=== PATIENT | female | born 1990 | race Caucasian/White ===

== ENCOUNTER 2019-03-15 14:27 | Emergency (ER) | payer SELFPAY ==
[~2019-03-15] VITALS: Ht 160 cm; Wt 100.0 kg
[~2019-03-15 14:27] MED LIST: AMOX500C2 PO; HYOS0.1217 PO; NAPR-243 PO; NAPR-915 PO; NITR-65 PO; ONDA-42 SL; ORPH100T PO; PARO10TA21 PO; PHEN37.555 PO; TRIA1TAB5 PO
[2019-03-15] MEDS ORDERED: LACTATED RINGERS 1,000 ML IV ONE (14:36)
--- NOTE | 2019-03-15 14:44 | ED Abdominal Pain ---
General Chief Complaint: Abdominal/GI Problems Stated Complaint: ABD/BACK PAIN Source of Information: Patient, Family (daughter) Exam Limitations: No Limitations History of Present Illness Date Seen by Provider: Mar 15, 2019 Time Seen by Provider: 14:25 Initial Comments Patient present with chief complaint within the last couple hours she's had progressively worsening epigastric abdominal pain radiating through to her back. No history of pancreatitis or gallstones or surgeries. She is not on anything for control. She has no dysuria but she is having some nausea without vomiting. Had a small stool earlier today. She denies any trauma. She had Telugu for lunch yesterday and did not eat last night when the pain started. Last night she took Gas-X and baking soda with water with no relief. This morning she woke up without pain and she forgets what she ate for lunch today but she says now she's having 10 out of 10 pain. Allergies and Home Medications Allergies Coded Allergies: cefaclor (Verified Allergy, Intermediate, HIVES, 01/30/13) Home Medications Naproxen 500 Mg Tablet, 500 MG PO BID Prescribed by: SERA SNOW on 02/18/151929 Orphenadrine Citrate 100 Mg Tablet.er, 100 MG PO BID FOR MUSCLE SPASMS Prescribed by: SERA SNOW on 02/18/151929 Phentermine Hcl 37.5 Mg Capsule, 37.5 MG PO DAILY, (Reported) Patient Home Medication List Home Medication List Reviewed: Yes Review of Systems Review of Systems Constitutional: No chills, No diaphoresis, No fever EENTM: No Blurred Vision, No Double Vision Respiratory: Denies Cough, Denies Orthopnea Cardiovascular: Denies Chest Pain, Denies Lightheadedness Gastrointestinal: Denies Abdomen Distended, Denies Abdominal Pain, Denies Constipated, Denies Diarrhea; Nausea; Denies Poor Fluid Intake, Denies Vomiting Genitourinary: Denies Burning, Denies Discharge Past Gimfjqr-Hjqdra-Zzrush Hx Patient Social History Alcohol Use: Denies Use Recreational Drug Use: No Smoking Status: Never a Smoker Recent Foreign Travel: No Contact w/Someone Who Travel: No Seasonal Allergies Seasonal Allergies: Yes Past Medical History Hypertension Reproductive Disorders: No Female Reproductive Disorders: Ovarian Cyst, Polycystic Ovarian Dis Sexually Transmitted Disease: No HIV/AIDS: No UTI-Chronic Adverse Reaction/Blood Tranf: No Physical Exam Vital Signs Vital Signs - First Documented 03/15/19 14:35 Temp 37.2 Pulse 110 Resp 19 B/P (MAP) 149/65 (93) Pulse Ox 100 O2 Delivery Room Air Capillary Refill : Height/Weight/BMI Height: 5'4" Weight: 192lbs. oz. 87.266147tg; BMI Method:Stated General Appearance: WD/WN, moderate distress HEENT: PERRL/EOMI, pharynx normal Neck: non-tender, full range of motion Respiratory: lungs clear, normal breath sounds, no respiratory distress, no accessory muscle use Cardiovascular: normal peripheral pulses, regular rate, rhythm, tachycardia Peripheral Pulses: 2+ Radial Pulses (R), 2+ Radial Pulses (L) Gastrointestinal: normal bowel sounds (active), tenderness (epigastric negative for Suggs sign, McBurney's point tenderness, psoas sign or other mesenteric signs.; ) Extremities: normal inspection Neurologic/Psychiatric: alert, oriented x 3, other (tearful affect) Skin: normal color, warm/dry Progress/Results/Core Measures Results/Orders Lab Results Laboratory Tests Test 03/15/19 14:40 03/15/19 14:44 Range/Units Urine Color YELLOW Urine Clarity SLIGHTLY CLOUDY Urine pH 6 5-9 Urine Specific [place] 1.025 H 1.016-1.022 Urine Protein 2+ H NEGATIVE Urine Glucose (UA) NEGATIVE NEGATIVE Urine Ketones NEGATIVE NEGATIVE Urine Nitrite NEGATIVE NEGATIVE Urine Bilirubin NEGATIVE NEGATIVE Urine Urobilinogen 4 H NORMAL MG/DL Urine Leukocyte Esterase 3+ H NEGATIVE Urine RBC (Auto) 1+ H NEGATIVE Urine RBC NONE /HPF Urine WBC 5-10 H /HPF Urine Squamous Epithelial Cells 5-10 /HPF Urine Crystals NONE /LPF Urine Bacteria FEW H /HPF Urine Casts NONE /LPF Urine Mucus NEGATIVE /LPF Urine Culture Indicated YES White Blood Count 7.0 4.3-11.0 10^3/uL Red Blood Count 4.50 4.35-5.85 10^6/uL Hemoglobin 12.2 11.5-16.0 G/DL Hematocrit 39 35-52 % Mean Corpuscular Volume 86 80-99 FL Mean Corpuscular Hemoglobin 27 25-34 PG Mean Corpuscular Hemoglobin Concent 32 32-36 G/DL Red Cell Distribution Width 13.1 10.0-14.5 % Platelet Count 310 130-400 10^3/uL Mean Platelet Volume 11.4 H 7.4-10.4 FL Neutrophils (%) (Auto) 62 42-75 % Lymphocytes (%) (Auto) 29 12-44 % Monocytes (%) (Auto) 6 0-12 % Eosinophils (%) (Auto) 2 0-10 % Basophils (%) (Auto) 1 0-10 % Neutrophils # (Auto) 4.4 1.8-7.8 X 10^3 Lymphocytes # (Auto) 2.0 1.0-4.0 X 10^3 Monocytes # (Auto) 0.4 0.0-1.0 X 10^3 Eosinophils # (Auto) 0.1 0.0-0.3 10^3/uL Basophils # (Auto) 0.1 0.0-0.1 10^3/uL Sodium Level 140 135-145 MMOL/L Potassium Level 3.4 L 3.6-5.0 MMOL/L Chloride Level 104 98-107 MMOL/L Carbon Dioxide Level 24 21-32 MMOL/L Anion Gap 12 5-14 MMOL/L Blood Urea Nitrogen 12 7-18 MG/DL Creatinine 0.84 0.60-1.30 MG/DL Estimat Glomerular Filtration Rate > 60 BUN/Creatinine Ratio 14 Glucose Level 119 H 70-105 MG/DL Calcium Level 8.8 8.5-10.1 MG/DL Corrected Calcium 8.6 8.5-10.1 MG/DL Total Bilirubin 0.4 0.1-1.0 MG/DL Aspartate Amino Transf (AST/SGOT) 22 5-34 U/L Alanine Aminotransferase (ALT/SGPT) 26 0-55 U/L Alkaline Phosphatase 91 40-136 U/L C-Reactive Protein High Sensitivity 0.95 H 0.00-0.50 MG/DL Total Protein 7.6 6.4-8.2 GM/DL Albumin 4.3 3.2-4.5 GM/DL Lipase 19 8-78 U/L My Orders Orders - SHAHEEN MUNSON Ua Culture If Indicated (03/15/19 14:30) Urine Bedside (03/15/19 14:30) Ed Iv/Invasive Line Start (03/15/19 14:36) Lactated Ringers (Lr 1000 Ml Iv Solution (03/15/19 14:36) Ketorolac Injection (Toradol Injection) (03/15/19 14:45) Ondansetron Injection (Zofran Injectio (03/15/19 14:45) Cbc With Automated Diff (03/15/19 14:36) Comprehensive Metabolic Panel (03/15/19 14:36) Lipase (03/15/19 14:36) Hs C Reactive Protein (03/15/19 14:36) Ct Abdomen/Pelvis W (03/15/19 14:36) Pantoprazole Injection (Protonix Injecti (03/15/19 14:45) Iohexol Injection (Omnipaque 350 Mg/Ml 1 (03/15/19 15:00) Sodium Chloride Flush (Catheter Flush Sy (03/15/19 15:00) Ns (Ivpb) (Sodium Chloride 0.9% Ivpb Bag (03/15/19 15:00) Received Contrast (Hold Metformin- Contr (03/15/19 15:00) Urine Culture (03/15/19 14:40) Hydrocodone/Apap 5/325 Tablet (Lortab 5 (03/15/19 17:30) Medications Given in ED Current Medications Medications Dose Ordered Sig/Mateusz Route Start Time Stop Time Status Last Admin Dose Admin Iohexol 100 ml ONCE ONCE IV 03/15/19 15:00 03/15/19 15:01 DC 03/15/19 15:04 100 ML Ketorolac Tromethamine 30 mg ONCE ONCE IVP 03/15/19 14:45 03/15/19 14:46 DC 03/15/19 14:52 30 MG Lactated Ringer's 1,000 ml @ 0 mls/hr Q0M ONCE IV 03/15/19 14:36 03/15/19 14:40 DC 03/15/19 14:50 0 MLS/HR Ondansetron HCl 8 mg ONCE ONCE IVP 03/15/19 14:45 03/15/19 14:46 DC 03/15/19 14:53 8 MG Pantoprazole 40 mg ONCE ONCE IV 03/15/19 14:45 03/15/19 14:46 DC 03/15/19 14:52 40 MG Sodium Chloride 10 ml NEEDED PRN IV 03/15/19 15:00 03/15/19 15:04 10 ML Sodium Chloride 100 ml ONCE ONCE IV 03/15/19 15:00 03/15/19 15:01 DC 03/15/19 15:04 80 ML Vital Signs/I&O 03/15/19 14:35 Temp 37.2 Pulse 110 Resp 19 B/P (MAP) 149/65 (93) Pulse Ox 100 O2 Delivery Room Air Progress Progress Note : Time: 14:44 Progress Note Aseptic vital signs. We'll obtain labs. We'll approach imaging if appropriate. Toradol, Zofran, pantoprazole. Pancreatitis, gastritis/esophagitis, less likely cholecystitis, colitis, enteritis. Departure Impression Primary Impression: Pyelonephritis Additional Impression: Hepatic lesion Disposition: HOME, SELF-CARE Condition: Stable Departure-Patient Inst. Decision time for Depature: 17:15 Referrals: [facility] [place] Primary Care Physician Patient Instructions: Kidney Infection (DC), LOCAL PHYSICIAN LIST Add. Discharge Instructions: Drink lots of water. Tylenol 650 mg every 8 hours as needed for pain. Ibuprofen 400 mg every 8 hours as needed for pain. Heating pads across the back and be helpful. Ciprofloxacin one capsule twice a day for the next week. Zofran 1 tablet every 6 hours under the tongue as needed for nausea. Hydrocodone one tablet every 6 hours as needed for breakthrough pain daily from being functional. Return to the ER if you're having intractable nausea or pain. You have a lesion on the liver needs to be further characterized whether it's benign or worrisome. After you establish care with a primary care doctor he can have this further worked up in the next few months. All discharge instructions reviewed with patient and/or family. Voiced understanding. Scripts Ondansetron HCl (Zofran) 4 Mg Tab 4 MG PO Q6H PRN for NAUSEA/VOMITING-1ST LINE, #10 TAB 0 Refills Prov: SHAHEEN MUNSON 03/15/19 Hydrocodone Bit/Acetaminophen (Hydrocodone/Acetaminophen 5/325mg Tablet) 1 Tab Tab 1 EACH PO Q4-6HR PRN for PAIN-MODERATE MDD 10 for 3 Days, #10 TAB 0 Refills Prov: SHAHEEN MUNSON 03/15/19 Ciprofloxacin HCl (Ciprofloxacin HCl) 500 Mg Tablet 500 MG PO BID for 7 Days, #14 TAB 0 Refills Prov: SHAHEEN MUNSON 03/15/19 Work/School Note: Work Release Form Date Seen in the Emergency Department: Mar 15, 2019 Return to Work: Mar 16, 2019 Restrictions: No Restrictions SHAHEEN MUNSON Mar 15, 2019 14:44
[2019-03-15] MEDS ORDERED: ONDANSETRON 4 MG/2 ML (SDV) Z0FRAN IVP ONE (14:45)
[2019-03-15] MEDS ORDERED: KETOROLAC 30 MG/ML VIAL IVP ONE (14:45)
[2019-03-15] MEDS ORDERED: PANTOPRAZOLE 40 MG (PROTONIX) VIAL IV ONE (14:45)
[2019-03-15 14:50] LABS: BILIRUBIN,URINE NEGATIVE (NEGATIVE); CLARITY,URINE SLIGHTLY CLOUDY; COLOR,URINE YELLOW; GLUCOSE, URINE (UA) NEGATIVE (NEGATIVE); KETONES,URINE NEGATIVE (NEGATIVE); LEUKOCYTE ESTERASE ,URINE 3+ (NEGATIVE); NITRITE,URINE NEGATIVE (NEGATIVE); PH,URINE 6 (5-9); PROTEIN,URINE 2+ (NEGATIVE); UROBILINOGEN,URINE 4 MG/DL (NORMAL)
[2019-03-15 14:52] LABS: BACTERIA,URINE FEW /HPF
[2019-03-15] MEDS ORDERED: HOLD METFORMIN - RECEIVED CONTRAST 20 ML VIAL IV SCH (15:00)
[2019-03-15] MEDS ORDERED: CATHETER FLUSH 10 ML SYR IV PRN (15:00)
[2019-03-15] MEDS ORDERED: NS 100 ML (IVPB) BAG IV ONE (15:00)
[2019-03-15] MEDS ORDERED: IOHEXOL 350 MG/ML 100 ML (OMNIPAQUE 350) VIAL IV ONE (15:00)
[2019-03-15 15:06] LABS: BASOPHILS # (AUTO) 0.1 10^3/uL (0.0-0.1); BASOPHILS % (AUTO) 1 % (0-10); EOSINOPHILS # (AUTO) 0.1 10^3/uL (0.0-0.3); EOSINOPHILS % (AUTO) 2 % (0-10); HEMATOCRIT 39 % (35-52); HEMOGLOBIN 12.2 G/DL (11.5-16.0); LYMPHOCYTES % (AUTO) 29 % (12-44); MEAN CORPUSCULAR HEMOGLOBIN 27 PG (25-34); MEAN CORPUSCULAR HGB CONC 32 G/DL (32-36); MEAN CORPUSCULAR VOLUME 86 FL (80-99); MEAN PLATELET VOLUME 11.4 FL (7.4-10.4); MONOCYTES # (AUTO) 0.4 X 10^3 (0.0-1.0); MONOCYTES % (AUTO) 6 % (0-12); NEUTROPHILS # (AUTO) 4.4 X 10^3 (1.8-7.8); NEUTROPHILS % (AUTO) 62 % (42-75); PLATELET COUNT 310 10^3/uL (130-400); RED CELL DISTRIBUTION WIDTH 13.1 % (10.0-14.5)
--- NOTE | 2019-03-15 15:12 | NUR ---
Pt back from CT. Pain re-assessed and rates pain 5/10 at this time.
[2019-03-15 15:28] LABS: ALANINE AMINOTRANSFERASE 26 U/L (0-55); ALBUMIN 4.3 GM/DL (3.2-4.5); ALKALINE PHOSPHATASE 91 U/L (40-136); BILIRUBIN,TOTAL 0.4 MG/DL (0.1-1.0); BUN/CREATININE RATIO 14; CALCIUM 8.8 MG/DL (8.5-10.1); CARBON DIOXIDE 24 MMOL/L (21-32); CHLORIDE 104 MMOL/L (98-107); CREATININE SERUM 0.84 MG/DL (0.60-1.30); GFR ESTIMATED > 60; GLUCOSE 119 MG/DL (70-105); LIPASE 19 U/L (8-78); POTASSIUM 3.4 MMOL/L (3.6-5.0); SODIUM 140 MMOL/L (135-145); TOTAL PROTEIN 7.6 GM/DL (6.4-8.2)
--- NOTE | 2019-03-15 15:28 | Diagnostic Imaging Report ---
PROCEDURE: CT abdomen and pelvis with contrast. TECHNIQUE: Multiple contiguous axial images were obtained through the abdomen and pelvis after administration of intravenous contrast. Auto Exposure Controls were utilized during the CT exam to meet ALARA standards for radiation dose reduction. INDICATION: Abdominal bloating. COMPARISON: There are no prior studies available for comparison. FINDINGS: The liver is not enlarged. However, there is a 1.3 x 3.6 cm fairly well-circumscribed area of diminished density in the region of the gallbladder fossa. This finding is of uncertain etiology. This could represent either a cystic lesion or a solid mass. Furthermore, a hemangioma could also present in this manner. Unfortunately, delayed series was not obtained. If further evaluation is desired, then follow-up CT abdomen examination with hemangioma protocol would be recommended. Ultrasound could also provide additional information regarding this finding. The liver is otherwise homogeneous. The spleen, pancreas, adrenals, kidneys, aorta and inferior vena cava show no sign of an acute abnormality. The gallbladder is not well-distended and difficult to assess. Conversely the stomach is filled with particulate matter and also difficult to evaluate. There is no pelvic mass or free fluid collection evident. The uterus is prominent but does not appear to be enlarged. The appendix was visualized and is not abnormally thickened. There is no pelvic mass or free fluid collection evident. The urinary bladder is grossly unremarkable. The bone windows show no sign of a fracture or of a destructive lesion. The lung bases are clear. IMPRESSION: 1. There is no evidence for acute abnormality of the abdomen or pelvis. 2. The area of diminished density in the right lobe of liver near the gallbladder is of uncertain etiology. Considerations and recommendations as above. Dictated by: Dictated on workstation # [id number]
[2019-03-15] MEDS ORDERED: CIPR500T4 PO (17:26)
[2019-03-15] MEDS ORDERED: ACHD5005 PO (17:26)
[2019-03-15] MEDS ORDERED: ONDN4T PO (17:26)
[2019-03-15] MEDS ORDERED: CIPROFLOXACIN IV 400MG/200ML 200 ML IV ONE (17:30)
[2019-03-15] MEDS ORDERED: HYDROcodone/APAP 5 MG/325 MG (LORTAB) TAB PO ONE (17:30)
[2019-03-15 18:49] VITALS: BP 135/68
== END 2019-03-15 18:49 | disposition home or self-care (01) ==
LOC: EDUNIT# 14:27 → ER 14:28
DX: N12 Tubulo-interstitial nephritis, not specified as acute or chronic (principal); K76.89 Other specified diseases of liver; I10 Essential (primary) hypertension; Z87.442 Personal history of urinary calculi; Z88.1 Allergy status to other antibiotic agents; Z87.42 Personal history of other diseases of the female genital tract
CPT/HCPCS: 36415; 74177; 80053; 81000; 83690; 84703; 85025; 86141; 87088